=== PATIENT | male | born 1960 | race Caucasian/White ===

== ENCOUNTER 2016-11-23 10:21 | Emergency (ER) | payer OTHER ==
[~2016-11-23] VITALS: Ht 177.8 cm; Wt 108.0 kg
[~2016-11-23 10:21] MED LIST: BENA20TA48 PO; METF1000 PO; NAPR-688 PO
[2016-11-23 10:32] VITALS: Ht 177.8 cm; Wt 108.0 kg
[2016-11-23] MEDS ORDERED: LISI20TA11 PO (11:01)
[2016-11-23 11:08] VITALS: BP 149/99; PULSE 80; RESP 14; TEMP 98
--- NOTE | 2016-11-23 12:43 | ERD ---
ER Documentation Chief Complaint Date/Time DATE: 11/23/16 TIME: 12:40 Chief Complaint "ran out of bp beds for 4 days HPI 56-year-old male patient with a past medical history of diabetes and hypertension presents to the ED to check his blood pressure. Reports that he will follow-up with his family doctor for a refill of the prescription. States that he took his friend's hypertensive medication, Atacand from [facility] because he ran out of his medication and feels like it is working. Denies any chest pain, shortness of breath, wheezing, dyspnea on exertion, orthopnea, pleuritic chest pain, abdominal pain, nausea, vomiting, polydipsia, polyuria. ROS All systems reviewed and are negative except as per history of present illness. Medications Home Meds Reported Medications Benazepril Hcl* (Benazepril Hcl*) 20 Mg Tablet, 20 MG PO DAILY, TAB 02/07/14 Metformin Hcl* (Metformin Hcl*) 1,000 Mg Tablet, 1000 MG PO BID WITH MEALS, TAB 02/07/14 Naproxen* (Naproxen*) 500 Mg Tablet, 500 MG PO BID, TAB 02/07/14 Discontinued Scripts Lisinopril* (Lisinopril*) 20 Mg Tablet, 20 MG PO DAILY, #30 TAB Prov:GIANCARLO CANALES PA-C 11/23/16 Allergies Allergies: Coded Allergies: No Known Allergy (Unverified , 02/07/14) PMhx/Soc History of Surgery: Yes (HERNIA APPENDECTOMY) Anesthesia Reaction: No Hx Neurological Disorder: No Hx Respiratory Disorders: No Hx Cardiac Disorders: Yes (HTN) Hx Psychiatric Problems: No Hx Miscellaneous Medical Probl: No Hx Alcohol Use: No Hx Substance Use: No Hx Tobacco Use: Yes Smoking Status: Current every day smoker Physical Exam Vitals Vital Signs Date Time Temp Pulse Resp B/P Pulse Ox O2 Delivery O2 Flow Rate FiO2 11/23/16 11:08 98.0 80 14 149/99 95 Room Air 11/23/16 10:32 97.8 87 18 147/108 95 Physical Exam Const: [id number], well-nourished. In no acute distress. Head: Atraumatic, normocephalic Eyes: Normal Conjunctiva without injection. No purulent discharge. PERRL. EOMI ENT: Normal external ear. Ear canal without erythema. Tympanic membrane pearly ricardo without effusion or bulging. Nasal canal clear with normal turbinates. Moist oropharynx without tonsillar exudates. Non-erythematous pharynx. Uvula midline. No drooling. No trismus. Neck: Full range of motion. No meningismus. No cervical lymphadenopathy. Resp: Clear to auscultation bilaterally. No wheezing, rhonchi, rales, or crackles. No accessory muscle use. No retractions. Cardio: Regular rate and rhythm. No murmurs, rubs or gallops. Abd: Soft, non tender, non distended. Normal bowel sounds. No palpable masses. No rebound tenderness. No guarding. Skin: No petechiae or rashes Back: No midline tenderness. No CVA tenderness. Ext: No cyanosis, or edema. Neur: Awake and alert. Psych: Normal Mood and Affect Procedures/MDM This is a 56-year-old male patient with a past medical history of hypertension and diabetes presents to the ED complaining of running out of his blood pressure medications but wants to fill it with his primary care physician tomorrow. States he is here to get his blood pressure rechecked. Patient's blood pressure was noted originally 147/108. Retake of the blood pressure is 149/99. Patient is asymptomatic. Patient's blood pressure was elevated (>120/ 80) but appears stable without evidence of hypertension emergency or urgency. The patient was counseled about the risks of hypertension and urged to pursue outpatient monitoring and therapy within a week with their primary care physician. Low suspicion for end organ damage. Patient denied wanting his prescription for lisinopril. States that he is going to follow-up with his primary care physician tomorrow for further evaluation and treatment and refill of his medication. Low suspicion for acute myocardial infarction, pneumothorax , pneumonia, cardiac tamponade, pulmonary embolism, pleural effusion, AAA, aortic dissection, Boerhaave's syndrome, cardiac dysrhythmias,meningitis, intracranial bleed, seizure, stroke, TIA or other emergent conditions. Follow up with primary care physician in 1-2 days. Instructed patient to return to the ED sooner for any worsening symptoms. Patient's questions were answered. Patient understood and agreed with discharge plan. Patient discharged stable. Departure Diagnosis: Primary Impression: Encounter for medication refill Condition: Stable Patient Instructions: Taking Medicine Safely, Taking SARAH Inhibitors, Hypertension, Established Referrals: JUSTINE ESPINO ([place]) (PCP) [facility] ([place]) Usted se simmons hecho un examen mdico de control que le indica que no est en hay condicin que requiera tratamiento urgente en el Departamento de Emergencia. Un estudio ms profundo y el tratamiento de castro condicin pueden esperar sin ningn riesgo hasta que usted sea atendida/o en el consultorio de castro mdico o hay cl price. Es responsabilidad suya arreglar hay cheyanne para el seguimiento del esteban. MANEJO DE CONDICIONES NO URGENTES EN EL FUTURO 1) Si usted tiene un mdico de atencin primaria: Usted debera llamar a castro mdico de atencin primaria antes de venir al departamento de emergencia. Despus de las horas de consultorio, castor doctor o castro asociado/a est disponible por telfono. El mdico o enfermero de shivani en el servicio telefnico puede asesorarle por ritesh medio para atender el problema, o esteban contrario se puede programar hay cheyanne. 2) Si usted no tiene un mdico de atencin primaria: Llame al mdico o clnica de referencia que aparece abajo christopher las horas de consultorio para hacer hay cheyanne para que le vean. CLINICAS: [facility] [phone] [address] [facility] [phone] [address] [facility] [phone] [facility] [phone] [facility] [phone] [facility]. [phone] [address] [facility] () Usted se simmons hecho un examen mdico de control que le indica que no est en hay condicin que requiera tratamiento urgente en el Departamento de Emergencia. Un estudio ms profundo y el tratamiento de castro condicin pueden esperar sin ningn riesgo hasta que usted sea atendida/o en el consultorio de castro mdico o hay cl price. Es responsabilidad suya arreglar hay cheyanne para el seguimiento del esteban. MANEJO DE CONDICIONES NO URGENTES EN EL FUTURO 1) Si usted tiene un mdico de atencin primaria: Usted debera llamar a castro mdico de atencin primaria antes de venir al departamento de emergencia. Despus de las horas de consultorio, castro doctor o castro asociado/a est disponible por telfono. El mdico o enfermero de shivani en el servicio telefnico puede asesorarle por ritesh medio para atender el problema, o esteban contrario se puede programar hay cheyanne. 2) Si usted no tiene un mdico de atencin primaria: Llame al mdico o condado institucions de referencia que aparece abajo christopher las horas de consultorio para hacer hay cheyanne para que le vean. SI USTED NO PUEDE PAGAR PARA MAN UN MEDICO puede ir a: [facility] [address] [place] [address] [facility] [address] [place] [address] [facility] [address] [place] [address] [facility] [address] [place] [address] Additional Instructions: Call your primary care doctor TOMORROW for an appointment during the next 2-3 days.See the doctor sooner or return here if your condition worsens before your appointment time. GIANCARLO CANALES PA-C November 23, 2016 12:43
== END 2016-11-23 11:45 | disposition home or self-care (01) ==
LOC: FTE 10:21
DX: Z76.0 Encounter for issue of repeat prescription (principal); I10 Essential (primary) hypertension; E11.9 Type 2 diabetes mellitus without complications; F17.210 Nicotine dependence, cigarettes, uncomplicated; Z79.84 Long term (current) use of oral hypoglycemic drugs
CPT/HCPCS: 99281

== ENCOUNTER 2018-01-17 13:54 | Emergency (ER) | END 2018-01-17 17:22 | disposition home or self-care (01) ==

== ENCOUNTER 2018-04-09 01:26 | Emergency (ER) | END 2018-04-09 04:53 | disposition home or self-care (01) ==